=== PATIENT | male | born 1995 | race Two or more races ===

== ENCOUNTER 2018-01-17 21:45 | Emergency (ER) | payer OTHER ==
[~2018-01-17] VITALS: Ht 185.4 cm; Wt 110.4 kg
[2018-01-17] MEDS ORDERED: ACETAMINOPHEN 500 MG TABLET PO ONE (22:30)
[2018-01-17] MEDS ORDERED: DIPH,PERTUSS(ACELL),TET VAC/PF 0.5 ML IM-VACC ONE ×2 (22:34→23:00)
[2018-01-17] MEDS ORDERED: ACETAMINOPHEN 500 MG TABLET ONE (22:34)
[2018-01-17] MEDS ORDERED: IBUPROFEN 200 MG TABLET ONE (23:21)
[2018-01-17] MEDS ORDERED: BACITRACIN ZINC OINT 500U/GM, 0.9 GM ONE (23:29)
[2018-01-17] MEDS ORDERED: IBUPROFEN 200 MG TABLET PO ONE (23:30)
[2018-01-17] MEDS ORDERED: BACITRACIN ZINC OINT 500U/GM, 0.9 GM TP ONE (23:45)
[2018-01-17 23:51] VITALS: BP 142/87
[2018-01-17] MEDS ORDERED: BACITRACIN ZINC OINT 500U/GM, 0.9 GM TP STA (23:52)
== END 2018-01-17 23:54 | disposition home or self-care (01) ==
LOC: ED 22:35
DX: S06.0X9A Concussion with loss of consciousness of unspecified duration, initial encounter (principal); R41.3 Other amnesia; V29.9XXA Motorcycle rider (driver) (passenger) injured in unspecified traffic accident, initial encounter; Y93.89 Activity, other specified; Y92.89 Other specified places as the place of occurrence of the external cause; Y99.8 Other external cause status
CPT/HCPCS: 70450; 71046; 90715; 96372; 99284

== ENCOUNTER 2018-07-29 14:08 | Emergency (ER) | payer OTHER ==
[~2018-07-29] VITALS: Ht 182.9 cm; Wt 110.0 kg
[2018-07-29 14:33] VITALS: BP 127/80
[2018-07-29] MEDS ORDERED: ONDANSETRON ODT 4 MG ONE (14:47)
[2018-07-29] MEDS ORDERED: HYDROcodone/APAP 5/325 TABLET ONE (15:21)
[2018-07-29] MEDS ORDERED: HYDROcodone/APAP 5/325 TABLET PO ONE (15:30)
== END 2018-07-29 15:46 | disposition home or self-care (01) ==
LOC: ED 15:05
DX: H16.142 Punctate keratitis, left eye (principal)
CPT/HCPCS: 99283